=== PATIENT | female | born 1980 | race Asian ===

== ENCOUNTER 2018-04-20 08:08 | Emergency (ER) | payer BC ==
[~2018-04-20] VITALS: Ht 154.9 cm; Wt 51.7 kg
[2018-04-20 08:25] VITALS: BP 121/77
[2018-04-20 09:37] LABS: BASOPHILS % (AUTO) 0.6 % (0-1); EOSINOPHILS % (AUTO) 1.2 % (0-6); HEMATOCRIT 46.1 % (35.0-45.0); HEMOGLOBIN 15.9 g/dl (12.0-16.0); LYMPHOCYTES # (AUTO) 1.2 X10'3 (1.1-4.8); LYMPHOCYTES % (AUTO) 29.3 % (21-51); MEAN CORPUSCULAR HGB CONC 34.5 % (33.0-36.5); MEAN CORPUSCULAR VOLUME 89.9 FL (78-98); MEAN PLATELET VOLUME 8.4 FL (7.4-10.4); MONOCYTES # (AUTO) 0.2 X10'3 (0-0.9); MONOCYTES % (AUTO) 6.2 % (2-12); NEUTROPHILS # (AUTO) 2.5 X10'3 (1.8-7.7); NEUTROPHILS % (AUTO) 62.7 % (42-75); PLATELET COUNT 252 X10'3 (140-440); RED BLOOD COUNT 5.13 X10'6 (4.20-5.60); RED CELL DISTRIBUTION WIDTH 12.1 % (11.5-14.5)
[2018-04-20 09:38] LABS: ALANINE AMINOTRANSFERASE 23 U/L (12-78); ALKALINE PHOSPHATASE 68 IU/L (46-116); ANION GAP 9 (8-16); ASPARTATE AMINO TRANSFERASE 18 U/L (10-37); BILIRUBIN,TOTAL 0.5 MG/DL (0.1-1.0); BLOOD UREA NITROGEN 7 MG/DL (7-18); BUN/CREATININE RATIO 11.1 (6.6-38.0); CALCIUM 9.1 MG/DL (8.5-10.1); CHLORIDE 103 MMOL/L (99-107); CREATININE 0.63 MG/DL (0.40-0.90); GLUCOSE 100 MG/DL (70-104); POTASSIUM 3.5 MMOL/L (3.5-5.1); SODIUM 141 MMOL/L (135-145); TOTAL CARBON DIOXIDE 29.4 MMOL/L (24-32); eGFR > 90 ML/MIN
[2018-04-20] MEDS ORDERED: NAPH1POW3 PO (10:06)
== END 2018-04-20 10:21 | disposition home or self-care (01) ==
LOC: ER 08:10
DX: R20.2 Paresthesia of skin (principal); E83.39 Other disorders of phosphorus metabolism
CPT/HCPCS: 36415; 80053; 83735; 84100; 84443; 85025; 99284

== ENCOUNTER 2022-07-29 17:21 | Emergency (ER) | payer BC, MEDICAID ==
[~2022-07-29] VITALS: Ht 154.9 cm; Wt 58.2 kg
[~2022-07-29 17:21] MED LIST: NAPH1POW3 PO
[2022-07-29 17:26] VITALS: BP 149/71
== END 2022-07-29 20:17 | disposition home or self-care (01) ==
LOC: ER 17:22
DX: R05.9 Cough, unspecified (principal)
CPT/HCPCS: 99282

== ENCOUNTER 2022-12-25 20:13 | Emergency (ER) | payer MEDICAID ==
[~2022-12-25] VITALS: Ht 154.9 cm; Wt 59.0 kg
[2022-12-25 20:18] VITALS: BP 145/89
[2022-12-25] MEDS ORDERED: CYCL-1 PO (21:59)
== END 2022-12-25 22:05 | disposition home or self-care (01) ==
LOC: ER 20:14
DX: S13.9XXA Sprain of joints and ligaments of unspecified parts of neck, initial encounter (principal); M54.6 Pain in thoracic spine; Z79.899 Other long term (current) drug therapy; V89.2XXA Person injured in unspecified motor-vehicle accident, traffic, initial encounter; Y93.89 Activity, other specified; Y92.89 Other specified places as the place of occurrence of the external cause; Y99.8 Other external cause status
CPT/HCPCS: 72040; 72070; 99284